=== PATIENT | female | born 1980 | race Caucasian/White ===

== ENCOUNTER 2017-05-17 21:14 | Emergency (ER) | payer MEDICAID ==
[~2017-05-17] VITALS: Ht 149.9 cm; Wt 109.0 kg
[2017-05-18] MEDS ORDERED: AZITHROMYCIN 500 MG TABLET PO ONE (02:45)
[2017-05-18] MEDS ORDERED: CEFTRIAXONE SODIUM 250 MG/VIAL IM ONE (02:45)
[2017-05-18] MEDS ORDERED: STERILE WATER FOR INJECTION 10ML VIAL ONE (03:09)
[2017-05-18 03:14] VITALS: BP 121/81
== END 2017-05-18 03:21 | disposition home or self-care (01) ==
LOC: ER 05-18 00:30
DX: N76.2 Acute vulvitis (principal); A64 Unspecified sexually transmitted disease; R03.0 Elevated blood-pressure reading, without diagnosis of hypertension; Z98.890 Other specified postprocedural states
CPT/HCPCS: 81025; 86592; 87210; 96372; 99284; A4216; J0696; Z7610; 87491; 87591

== ENCOUNTER 2017-10-16 02:31 | Emergency (ER) | payer SELFPAY ==
[~2017-10-16] VITALS: Ht 152.4 cm; Wt 65.0 kg
[2017-10-16 03:13] VITALS: BP 137/93
[2017-10-16] MEDS ORDERED: BACITRACIN ZINC OINT UDPKT TOP ONE (06:30)
[2017-10-16] MEDS ORDERED: LIDOCAINE HCL 1% 20ML VIAL (Pyxis) INJ MC ONE (06:30)
== END 2017-10-16 09:04 | disposition home or self-care (01) ==
LOC: ER 02:31
DX: L03.032 Cellulitis of left toe (principal); E11.9 Type 2 diabetes mellitus without complications
CPT/HCPCS: 10060; 82962; 99283; C1893; J3490; Z7610

== ENCOUNTER 2017-10-18 16:22 | Emergency (ER) | payer MEDICAID ==
[~2017-10-18] VITALS: Ht 147.3 cm; Wt 109.0 kg
[2017-10-18 16:29] VITALS: BP 123/77
== END 2017-10-18 20:49 | disposition home or self-care (01) ==
LOC: ER 16:43
DX: Z48.00 Encounter for change or removal of nonsurgical wound dressing (principal)
CPT/HCPCS: 82962; 99282

== ENCOUNTER 2017-12-10 19:05 | Emergency (ER) | payer SELFPAY ==
[~2017-12-10] VITALS: Ht 152.4 cm; Wt 112.0 kg
[2017-12-10] MEDS ORDERED: ONDANSETRON 4MG ODT PO ONE (21:00)
[2017-12-10] MEDS ORDERED: KETOROLAC 60MG/2ML VIAL IM ONE (21:00)
[2017-12-10 22:28] LABS: CLARITY URINE CLOUDY (CLEAR); COLOR URINE YELLOW (YELLOW); KETONES URINE TRACE (NEGATIVE); LEUKOCYTE ESTERASE URINE TRACE (NEGATIVE); NITRITE URINE POSITIVE (NEGATIVE); OCCULT BLOOD URINE TRACE (NEGATIVE); PH URINE 7.5 (4.5-8.0); PROTEIN URINE NEGATIVE (NEGATIVE); SPECIFIC GRAVITY URINE 1.023 (1.005-1.030)
[2017-12-10 23:37] VITALS: BP 131/77
== END 2017-12-10 23:41 | disposition home or self-care (01) ==
LOC: ER 19:05
DX: J06.9 Acute upper respiratory infection, unspecified (principal); N39.0 Urinary tract infection, site not specified; J45.909 Unspecified asthma, uncomplicated; E11.9 Type 2 diabetes mellitus without complications; Z98.890 Other specified postprocedural states
CPT/HCPCS: 71045; 81001; 81025; 87804; 96372; 99285; J1885; Q0162; Z7610

== ENCOUNTER 2018-01-05 22:22 | Emergency (ER) | payer SELFPAY ==
[~2018-01-05] VITALS: Ht 147.3 cm; Wt 110.0 kg
[2018-01-06 03:31] VITALS: BP 125/80
[2018-01-06 03:37] LABS: BASOPHILS % 1.1 % (0.0-2.0); EOSINOPHILS % 1.7 % (0.0-5.0); HEMATOCRIT. 41.1 % (36.0-48.0); HEMOGLOBIN. 13.9 g/dL (12.0-16.0); LYMPHOCYTES % 33.5 % (20.0-50.0); MEAN CORPUSCULAR HEMOGLOBIN 27.5 pg (28.0-32.0); MEAN CORPUSCULAR VOLUME 81.4 fL (81.0-99.0); MONOCYTES % 15.6 % (2.0-8.0); NEUTROPHILS % 48.1 % (40.0-76.0); PLATELET 181 x1000/uL (130-400); RED BLOOD CELL COUNT 5.05 mill/uL (4.2-5.4); RED CELL DISTRIBUTION WIDTH 13.7 % (11.6-14.6)
[2018-01-06 03:41] LABS: CLARITY URINE CLOUDY (CLEAR); COLOR URINE YELLOW (YELLOW); KETONES URINE TRACE (NEGATIVE); LEUKOCYTE ESTERASE URINE NEGATIVE (NEGATIVE); NITRITE URINE NEGATIVE (NEGATIVE); OCCULT BLOOD URINE NEGATIVE (NEGATIVE); PH URINE 5.5 (4.5-8.0); PROTEIN URINE NEGATIVE (NEGATIVE); SPECIFIC GRAVITY URINE 1.028 (1.005-1.030); UROBILINOGEN URINE 0.2 E.U./dL (0.2-1.0)
[2018-01-06 03:52] LABS: CHLORIDE 100 mEq/L (98-107)
[2018-01-06 03:58] LABS: TROPONIN I < 0.02 ng/mL (0.00-0.04)
== END 2018-01-06 05:08 | disposition home or self-care (01) ==
LOC: ER 22:22
DX: J10.1 Influenza due to other identified influenza virus with other respiratory manifestations (principal); E11.9 Type 2 diabetes mellitus without complications; Z98.890 Other specified postprocedural states
CPT/HCPCS: 36415; 71045; 80053; 81003; 82962; 83880; 84484; 85025; 87804; 93005; 99285

== ENCOUNTER 2018-11-02 17:14 | Emergency (ER) | payer SELFPAY ==
[~2018-11-02] VITALS: Ht 147.3 cm; Wt 111.0 kg
[2018-11-02] MEDS ORDERED: LIDOCAINE HCL/PF 1% 10 MG/ML 5ML VIAL IJ ONE (21:00)
[2018-11-02] MEDS ORDERED: BACITRACIN ZINC OINT UDPKT TOP ONE (21:00)
[2018-11-02] MEDS ORDERED: ACETAMINOPHEN 325MG TABLET PO ONE (21:00)
[2018-11-02 22:02] VITALS: BP 140/93
== END 2018-11-02 22:13 | disposition home or self-care (01) ==
LOC: ER 17:14
DX: S51.811A Laceration without foreign body of right forearm, initial encounter (principal); E11.9 Type 2 diabetes mellitus without complications; Z98.890 Other specified postprocedural states; W45.8XXA Other foreign body or object entering through skin, initial encounter; Y93.89 Activity, other specified; Y92.098 Other place in other non-institutional residence as the place of occurrence of the external cause; Y99.8 Other external cause status
CPT/HCPCS: 12001; 99283; J3490

== ENCOUNTER 2019-08-02 18:26 | Emergency (ER) | payer SELFPAY ==
[~2019-08-02] VITALS: Ht 152.4 cm; Wt 106.0 kg
[2019-08-03] MEDS ORDERED: SODIUM CHLORIDE 0.9% 1,000 ML IV ONE (00:03)
[2019-08-03 00:50] LABS: BASOPHILS % 0.9 % (0.0-2.0); EOSINOPHILS % 4.4 % (0.0-5.0); HEMATOCRIT. 42.4 % (36.0-48.0); HEMOGLOBIN. 14.5 g/dL (12.0-16.0); LYMPHOCYTES % 29.8 % (20.0-50.0); MEAN CORPUSCULAR HEMOGLOBIN 29.1 pg (28.0-32.0); MEAN PLATELET VOLUME 8.8 fl (7.4-10.4); NEUTROPHILS % 56.9 % (40.0-76.0); PLATELET 245 x1000/uL (130-400); RED BLOOD CELL COUNT 4.99 mill/uL (4.2-5.4); RED CELL DISTRIBUTION WIDTH 13.4 % (11.6-14.6)
[2019-08-03 00:53] LABS: CHLORIDE 106 mEq/L (98-107)
[2019-08-03 03:24] VITALS: BP 144/87
== END 2019-08-03 03:25 | disposition home or self-care (01) ==
LOC: ER 18:26
DX: R07.9 Chest pain, unspecified (principal); B34.9 Viral infection, unspecified; E11.9 Type 2 diabetes mellitus without complications; Z87.01 Personal history of pneumonia (recurrent); Z98.890 Other specified postprocedural states
CPT/HCPCS: 36415; 71045; 80053; 81025; 84484; 85025; 93005; 99284; J7030; Z7610

== ENCOUNTER 2019-11-29 23:15 | Emergency (ER) | payer SELFPAY ==
[~2019-11-29] VITALS: Ht 152.4 cm; Wt 106.0 kg
[2019-11-30 05:30] LABS: CLARITY URINE CLEAR (CLEAR); COLOR URINE YELLOW (YELLOW); KETONES URINE TRACE (NEGATIVE); LEUKOCYTE ESTERASE URINE NEGATIVE (NEGATIVE); NITRITE URINE NEGATIVE (NEGATIVE); OCCULT BLOOD URINE NEGATIVE (NEGATIVE); PH URINE 5.5 (4.5-8.0); PROTEIN URINE NEGATIVE (NEGATIVE); SPECIFIC GRAVITY URINE 1.041 (1.005-1.030)
[2019-11-30 05:34] LABS: HEMATOCRIT. 44.2 % (36.0-48.0); MEAN CORPUSCULAR HEMOGLOBIN 28.4 pg (28.0-32.0); MEAN CORPUSCULAR VOLUME 83.9 fL (81.0-99.0); MEAN PLATELET VOLUME 8.6 fl (7.4-10.4); PLATELET 250 x1000/uL (130-400); RED BLOOD CELL COUNT 5.27 mill/uL (4.2-5.4); RED CELL DISTRIBUTION WIDTH 13.3 % (11.6-14.6)
[2019-11-30 05:35] LABS: BASOPHILS % 1.4 % (0.0-2.0); EOSINOPHILS % 0.9 % (0.0-5.0); LYMPHOCYTES % 14.8 % (20.0-50.0); MONOCYTES % 8.3 % (2.0-8.0); NEUTROPHILS % 74.6 % (40.0-76.0); PARTIAL THROMBOPLASTIN TIME 27.8 sec (23.4-31.0); PROTHROMBIN TIME 10.3 sec (9.6-11.0)
[2019-11-30 05:36] LABS: CHLORIDE 99 mEq/L (98-107)
[2019-11-30] MEDS ORDERED: KETOROLAC 30MG/ML VIAL IM ONE (07:00)
[2019-11-30 07:37] VITALS: BP 119/71
== END 2019-11-30 09:00 | disposition home or self-care (01) ==
LOC: ER 23:15
DX: J40 Bronchitis, not specified as acute or chronic (principal); M75.20 Bicipital tendinitis, unspecified shoulder; M77.9 Enthesopathy, unspecified; E11.65 Type 2 diabetes mellitus with hyperglycemia; Z87.01 Personal history of pneumonia (recurrent)
CPT/HCPCS: 36415; 71045; 80053; 81003; 81025; 83605; 83690; 83880; 84484; 85025; 85610; 85730; 87804; 93005; 96372; 99284; J1885

== ENCOUNTER 2020-04-06 12:59 | Emergency (ER) | payer MEDICAID ==
[~2020-04-06] VITALS: Ht 147.3 cm; Wt 109.0 kg
[2020-04-06] MEDS ORDERED: ACETAMINOPHEN 325MG TABLET PO ONE (13:30)
[2020-04-06] MEDS ORDERED: TETANUS, DIPHTHERIA, PERTUSSIS VAC/PF 0.5ML (>7YR OLD) IM ONE (13:45)
[2020-04-06] MEDS ORDERED: BACITRACIN ZINC OINT UDPKT TOP ONE (13:45)
[2020-04-06 15:26] VITALS: BP 146/87
== END 2020-04-06 15:27 | disposition home or self-care (01) ==
LOC: ER 12:59
DX: S60.411A Abrasion of left index finger, initial encounter (principal); E66.01 Morbid (severe) obesity due to excess calories; E11.9 Type 2 diabetes mellitus without complications; I10 Essential (primary) hypertension; Z98.890 Other specified postprocedural states; Z68.43 Body mass index [BMI] 50.0-59.9, adult; Z48.00 Encounter for change or removal of nonsurgical wound dressing; W54.0XXA Bitten by dog, initial encounter; Y93.89 Activity, other specified; Y92.89 Other specified places as the place of occurrence of the external cause; Y99.8 Other external cause status
CPT/HCPCS: 90471; 90715; 99283

== ENCOUNTER 2020-09-27 04:29 | Emergency (ER) | payer SELFPAY ==
[~2020-09-27] VITALS: Ht 147.3 cm; Wt 109.0 kg
[2020-09-27] MEDS ORDERED: DOXYCYCLINE HYCLATE 100MG CAPSULE PO ONE (06:15)
[2020-09-27] MEDS ORDERED: IBUPROFEN 600MG TABLET PO ONE (06:15)
[2020-09-27] MEDS ORDERED: FLUCONAZOLE 100MG TABLET PO ONE (06:15)
[2020-09-27 06:55] VITALS: BP 132/93
== END 2020-09-27 06:56 | disposition home or self-care (01) ==
LOC: ER 04:35
DX: B37.3 Candidiasis of vulva and vagina (principal); N76.2 Acute vulvitis; E11.9 Type 2 diabetes mellitus without complications; I10 Essential (primary) hypertension; Z87.01 Personal history of pneumonia (recurrent)
CPT/HCPCS: 99284